=== PATIENT | female | born 1975 | race Two or more races ===

== ENCOUNTER 2021-03-06 09:35 | Day surgery (SDC) | payer OTHER ==
[2021-03-06] MEDS ORDERED: PERCOCET 5-3251 EACH PO (17:13)
[2021-03-06] MEDS ORDERED: COLACE100 MG PO (17:13)
== END 2021-03-06 23:00 | disposition home or self-care (01) ==
LOC: CIR.AMB 09:35
PROVIDERS: ATTEND Surgery
DX: K62.1 Rectal polyp (principal); Z20.822 Contact with and (suspected) exposure to COVID-19